=== PATIENT | male | born 1985 | race Asian ===

== ENCOUNTER → 2017-01-20 07:41 | Outpatient (CLI) | payer OTHER | END | disposition home or self-care (01) | LOC: AMB 07:41 | DX: R41.82 Altered mental status, unspecified (principal) ==

== ENCOUNTER 2020-04-28 11:47 | Emergency (ER) | payer OTHER ==
[~2020-04-28] VITALS: Ht 170.2 cm; Wt 72.6 kg
[2020-04-28 11:58] VITALS: BP 155/80; TEMP 98.2
== END 2020-04-28 12:55 | disposition home or self-care (01) ==
LOC: ED 11:47
PROC: 2W3MX1Z Immobilization of Left Lower Extremity using Splint (ICD-10-PCS; principal; 2020-04-28)
DX: M25.562 Pain in left knee (principal); X50.1XXA Overexertion from prolonged static or awkward postures, initial encounter; Y92.89 Other specified places as the place of occurrence of the external cause
CPT/HCPCS: 96372; 99283; J1885